=== PATIENT | female | born 1940 | race Caucasian/White ===

== ENCOUNTER 2016-05-12 08:00 | Outpatient (CLI) | payer MEDICARE, OTHER | END 2016-05-12 08:01 | disposition home or self-care (01) | DX: R94.7 Abnormal results of other endocrine function studies (principal) ==

== ENCOUNTER 2016-10-29 15:32 | Outpatient (CLI) | payer MEDICARE, OTHER ==
[2016-10-30 11:27] LABS: THYROID STIMULATING HORMONE 3.18 uIU/mL (0.34-5.60)
== END 2016-10-29 15:33 | disposition home or self-care (01) ==
LOC: LAB.F 15:32
PROVIDERS: ATTEND Internal Medicine Endocrinology, Diabetes & Metabolism
DX: R94.7 Abnormal results of other endocrine function studies (principal)
CPT/HCPCS: 36415; 84439; 84443; 86316

== ENCOUNTER 2017-01-08 10:58 | Outpatient (CLI) | payer MEDICARE, OTHER ==
[2017-01-08 18:48] LABS: THYROID STIMULATING HORMONE 3.09 uIU/mL (0.34-5.60)
== END 2017-01-08 10:59 | disposition home or self-care (01) ==
LOC: LAB.F 10:58
PROVIDERS: ATTEND Internal Medicine Endocrinology, Diabetes & Metabolism
DX: E05.90 Thyrotoxicosis, unspecified without thyrotoxic crisis or storm (principal)
CPT/HCPCS: 36415; 84439; 84443

== ENCOUNTER 2017-01-31 10:35 | Emergency (ER) | payer MEDICARE, OTHER ==
[2017-01-31 10:41] VITALS: BP 125/78
--- NOTE | 2017-01-31 11:11 | ED Physician Documentation ---
History of Present Illness - Stated complaint Stated Complaint: FEMALE - Chief complaint Chief Complaint: General - Additonal information Additional information: hx from pt 77 female dysuira X 9 days despite cramberry juice and fishy vag odor s discharge no fever but + sweats no NV no abd pain no flank pain Review of Systems Constitutional: reports: Sweats. denies: Fever Cardiac: denies: Chest pain / pressure GI: denies: Abdominal Pain, Nausea, Vomiting : reports: Dysuria. denies: Discharge Musculoskeletal: denies: Back pain PD PAST MEDICAL HISTORY - Past Medical History Respiratory: Shortness of breath Neuro: None HEENT: Chronic hearing loss Psych: Bipolar disorder Musculoskeletal: Osteoarthritis, Chronic back pain - Past Surgical History Past Surgical History: Yes - Present Medications Home Medications: Ambulatory Orders Medication Instructions Recorded Confirmed ALPRAZolam [Alprazolam] 0.5 mg PO BID 01/11/15 01/31/17 Albuterol [Ventolin Hfa] 2 puffs INH Q4H PRN #1 inhaler 01/11/15 01/31/17 Gabapentin 300 mg PO BID 01/11/15 01/31/17 Quetiapine Fumarate 150 mg PO DAILY 01/11/15 01/31/17 Cephalexin [Keflex] 500 mg PO Q6H #28 capsule 01/31/17 Cyanocobalamin (Vitamin B-12) 100 mcg PO DAILY 01/31/17 01/31/17 [Vitamin B-12 (100mcg tab)] Folic Acid 1 mg PO DAILY 01/31/17 01/31/17 Omeprazole 20 mg PO DAILY 01/31/17 01/31/17 - Allergies Allergies/Adverse Reactions: Allergies Allergy/AdvReac Type Severity Reaction Status Date / Time No Known Drug Allergies Allergy Verified 01/31/17 10:54 - Social History Does the pt smoke?: Yes Smoking Status: Current every day smoker Does the pt drink ETOH?: No Does the pt have substance abuse?: No - Immunizations Immunizations are current?: Yes PD ED PE NORMAL - Vitals Vital signs reviewed: Yes - Cardiac Cardiac: RRR - Respiratory Respiratory: No respiratory distress, Clear bilaterally - Abdomen Abdomen: Soft, Non tender - Female Female : 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[place], 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, wet prep and cultures sent) - Back Back: No CVA TTP - Neuro Neuro: Alert and oriented X 3 Results - Vitals Vitals: Vital Signs - 24 hr 01/31/17 10:38 Temperature 35.7 C L Heart Rate 81 Respiratory 16 Rate Blood Pressure 125/78 O2 Saturation 100 Oxygen O2 Source Room air - Labs Labs: Microbiology 01/31/17 11:30 Wet Prep - Final Genital - Cervix Laboratory Tests 01/31/17 11:45 Urine Color YELLOW Urine Clarity HAZY Urine pH 6.0 Ur Specific [place] 1.010 Urine Protein NEGATIVE Urine Glucose (UA) NEGATIVE Urine Ketones NEGATIVE Urine Occult Blood NEGATIVE Urine Nitrite POSITIVE H Urine Bilirubin NEGATIVE Urine Urobilinogen 0.2 (NORMAL) Ur Leukocyte Esterase MODERATE H Urine RBC 0-5 Urine WBC >25 H Urine WBC Clumps PRESENT Ur Squamous Epith Cells MANY Squamous H Urine Bacteria Moderate H Ur Microscopic Review INDICATED Urine Culture Comments NOT INDICATED Departure - Departure Disposition: 01 Home, Self Care Clinical Impression: UTI (urinary tract infection) Qualifiers: Urinary tract infection type: acute cystitis Hematuria presence: without hematuria Qualified Code(s): N30.00 - Acute cystitis without hematuria Condition: Good Instructions: ED UTI Cystitis Female Follow-Up: Malou Lopez ARNP [Primary Care Provider] - Prescriptions: Cephalexin [Keflex] 500 mg PO Q6H #28 capsule Comments: You do have a bladder infection. The initial vaginal cultures are negative. Some other vaginal cultures are still running and will be resulted in three days - we will call you if they are positive.
[2017-01-31 11:58] LABS: BILIRUBIN,URINE NEGATIVE (NEGATIVE)
[2017-01-31 12:00] LABS: UA w/ MICROSCOPIC CHARGE YES
[2017-01-31 12:05] LABS: UR CULTURE IF IND NOT INDICATED; WBC,URINE >25 /HPF (0-5)
== END 2017-01-31 12:28 | disposition home or self-care (01) ==
LOC: ED 10:35
DX: N30.00 Acute cystitis without hematuria (principal); M19.90 Unspecified osteoarthritis, unspecified site; F17.200 Nicotine dependence, unspecified, uncomplicated
CPT/HCPCS: 81001; 81003; 87086; 87210; 87491; 87591; 99283

== ENCOUNTER 2017-02-15 08:00 | Outpatient (CLI) | payer MEDICARE, OTHER ==
[2017-02-15 18:37] LABS: BILIRUBIN,URINE NEGATIVE (NEGATIVE); PH,URINE 6.5 PH (5.0-7.5)
[2017-02-15 19:24] LABS: UR CULTURE IF IND NOT INDICATED; WBC,URINE 0-3 /HPF (0-5)
== END 2017-02-15 08:01 | disposition home or self-care (01) ==
LOC: LAB.R 08:00
PROVIDERS: ATTEND Nurse Practitioner Family
DX: N76.0 Acute vaginitis (principal)
CPT/HCPCS: 81001; 87086

== ENCOUNTER 2017-04-20 15:49 | Outpatient (CLI) | payer MEDICARE, OTHER | END 2017-04-20 15:50 | disposition home or self-care (01) | LOC: LAB.F 15:49 | PROVIDERS: ATTEND Internal Medicine Endocrinology, Diabetes & Metabolism | DX: E05.90 Thyrotoxicosis, unspecified without thyrotoxic crisis or storm (principal); R94.7 Abnormal results of other endocrine function studies | CPT/HCPCS: 36415; 84443 ==

== ENCOUNTER 2017-04-21 08:00 | Outpatient (CLI) | payer MEDICARE, OTHER ==
[2017-04-21 18:35] LABS: BILIRUBIN,URINE NEGATIVE (NEGATIVE); GLUCOSE, URINE (UA) NEGATIVE (NEGATIVE); KETONES,URINE (UA) NEGATIVE (NEGATIVE); LEUKOCYTE ESTERASE, URINE SMALL (NEGATIVE); NITRITE,URINE NEGATIVE (NEGATIVE); OCCULT BLOOD,URINE NEGATIVE (NEGATIVE); PROTEIN,URINE NEGATIVE (NEGATIVE); UROBILINOGEN,URINE 0.2 (NORMAL) E.U./dL (NORMAL)
[2017-04-21 19:38] LABS: CLARITY,URINE CLEAR (CLEAR)
[2017-04-21 19:39] LABS: BACTERIA,URINE Moderate /HPF (None Seen); RBC,URINE 0-5 /HPF (0-5); SQUAMOUS EPITHELIAL CELL,UR MOD Squamous (<= Few)
== END 2017-04-21 08:01 ==
LOC: LAB.R 08:00
PROVIDERS: ATTEND Nurse Practitioner Family
DX: R30.0 Dysuria (principal)
CPT/HCPCS: 81001; 87086

== ENCOUNTER 2017-06-16 14:24 | Emergency (ER) | payer MEDICARE, OTHER ==
--- NOTE | 2017-06-16 15:30 | XRAY Preliminary Report ---
Exam: XR CHEST 2 VIEW X-RAY IMPRESSION: No acute cardiopulmonary disease seen. [facility] SITE ID: [id number]
--- NOTE | 2017-06-16 15:30 | XRAY Report ---
EXAM: CHEST RADIOGRAPHY EXAM DATE: 06/16/2017 03:10 PM. CLINICAL HISTORY: Cough/congestion. COMPARISON: Chest 01/11/15. TECHNIQUE: 2 views. FINDINGS: Lungs/Pleura: No focal opacities evident. No pleural effusion. No pneumothorax. Normal volumes. Mediastinum: Heart and mediastinal contours are unremarkable. IMPRESSION: No acute cardiopulmonary disease seen. [facility] Referring Provider Line: [phone] SITE ID: [id number]
[2017-06-16 15:43] VITALS: BP 145/80
[2017-06-16] MEDS ORDERED: DEXAMETHASONE 10 MG/ML VIAL PO STA (15:54)
--- NOTE | 2017-06-16 15:58 | ED Physician Documentation ---
PD HPI URI - Stated complaint Stated Complaint: FATIGUE/COUGH/RASH - Chief complaint Chief Complaint: General - History obtained from History obtained from: Patient, Family - History of Present Illness Timing - onset: How many weeks ago (3) Timing duration: Weeks (3) Timing details: Gradual onset, Still present Associated symptoms: Fever, Chills, Nasal congestion, Rhinorrhea, Sinus pain, Dry cough, Other (fatigue) Contributing factors: Sick contact Improves by: Rest, Medication Similar symptoms before: Diagnosis (wheezy bronchitis) Recently seen: Not recently seen - Additional information Additional information: 77 y/o female with a 3 week history of cough and congestion that seemed to get worse last week with fever and aches like the flu and this started to get better and then the past 3 days it is worse again with nasal congestion sinus pressure and fatigue. She is worried about pneumonia. She did get a rash on her chest that is better today. Review of Systems Constitutional: reports: Fever, Chills, Myalgias, Fatigue, Sweats Eyes: denies: Decreased vision Ears: denies: Ear pain Nose: reports: Rhinorrhea / runny nose, Congestion, Sinus pressure / pain Throat: denies: Sore throat Cardiac: denies: Chest pain / pressure, Palpitations Respiratory: reports: Cough. denies: Dyspnea GI: denies: Nausea, Vomiting : denies: Dysuria, Frequency Skin: reports: Rash Musculoskeletal: denies: Neck pain, Back pain, Extremity pain Neurologic: reports: Generalized weakness, Headache. denies: Focal weakness, Numbness, Head injury, LOC PD PAST MEDICAL HISTORY - Past Medical History Past Medical History: Yes Respiratory: Shortness of breath Neuro: None HEENT: Chronic hearing loss Psych: Bipolar disorder Musculoskeletal: Osteoarthritis, Chronic back pain - Past Surgical History Past Surgical History: Yes - Present Medications Home Medications: Ambulatory Orders Medication Instructions Recorded Confirmed ALPRAZolam [Alprazolam] 0.5 mg PO BID 01/11/15 06/16/17 Gabapentin 300 mg PO BID 01/11/15 06/16/17 Quetiapine Fumarate 150 mg PO DAILY 01/11/15 06/16/17 Cyanocobalamin (Vitamin B-12) 100 mcg PO DAILY 01/31/17 06/16/17 [Vitamin B-12 (100mcg tab)] Folic Acid 1 mg PO DAILY 01/31/17 06/16/17 Omeprazole 20 mg PO DAILY 01/31/17 06/16/17 Azithromycin [Zithromax] 250 mg PO DAILY #6 tablet 06/16/17 Fluconazole [Diflucan] 150 mg PO ONCE #1 tablet 06/16/17 - Allergies Allergies/Adverse Reactions: Allergies Allergy/AdvReac Type Severity Reaction Status Date / Time narcotics Allergy Unknown Uncoded 06/16/17 14:48 - Social History Does the pt smoke?: Yes Smoking Status: Current every day smoker Does the pt drink ETOH?: No Does the pt have substance abuse?: No - Immunizations Immunizations are current?: Yes PD ED PE NORMAL - Vitals Vital signs reviewed: Yes (hypertensive ) - General General: Alert and oriented X 3, No acute distress, Well developed/nourished, Other (pleasant female that does not appear ill. ) - HEENT HEENT: Atraumatic, PERRL, EOMI, Other (The left TM is discretely inflamed and the right is clear. There is sinus point tenderness to the left maxillary sinus. ) - Neck Neck: Supple, no meningeal sign, No bony TTP - Cardiac Cardiac: RRR, No murmur - Respiratory Respiratory: No respiratory distress, Other (diminished breath sounds without rhonchi ) - Abdomen Abdomen: Soft, Non tender - Back Back: No CVA TTP, No spinal TTP - Derm Derm: Normal color, Warm and dry, No rash - Extremities Extremities: No deformity, No edema - Neuro Neuro: No motor deficit, No sensory deficit Eye Opening: Spontaneous Motor: Obeys Commands Verbal: Oriented GCS Score: 15 - Psych Psych: Normal mood, Normal affect Results - Vitals Vitals: Vital Signs - 24 hr 06/16/17 06/16/17 14:46 15:42 Temperature 36.3 C L Heart Rate 77 68 Respiratory 14 18 Rate Blood Pressure 153/93 H 145/80 H O2 Saturation 98 98 Oxygen O2 Source Room air - Rads (name of study) 2 veiw chest Radiology: Prelim report reviewed (Impression: No acute cardiopulmonary disease seen.), EMP read indepedently, See rad report PD MEDICAL DECISION MAKING - ED course Complexity details: reviewed results, re-evaluated patient, considered differential, d/w patient, d/w family ED course: 77-year-old female with cough congestion for 3 weeks has a bimodal illness with improvement in what sounds like a viral illness and now worsening again. Findings today on examination include maxillary sinus tenderness on the left side and inflammation to the left TM. Chest x-ray is without evidence of acute infiltrate. She is administered dexamethasone orally and we will start her on some azithromycin. Departure - Departure Disposition: 01 Home, Self Care Clinical Impression: Otitis media Qualifiers: Otitis media type: suppurative Chronicity: acute Laterality: left Recurrence: not specified as recurrent Spontaneous tympanic membrane rupture: without spontaneous rupture Qualified Code(s): H66.002 - Acute suppurative otitis media without spontaneous rupture of ear drum, left ear Maxillary sinusitis, acute Qualifiers: Recurrence: not specified as recurrent Qualified Code(s): J01.00 - Acute maxillary sinusitis, unspecified Condition: Stable Instructions: ED Otitis Media Acute Adult, ED Sinusitis Abx Tx Follow-Up: Malou Lopez ARNP [Primary Care Provider] - Prescriptions: Azithromycin [Zithromax] 250 mg PO DAILY #6 tablet Fluconazole [Diflucan] 150 mg PO ONCE #1 tablet
[2017-06-16] MEDS ORDERED: CHERRY SYRUP 10 ML UDC PO ONE (16:11)
== END 2017-06-16 16:11 | disposition home or self-care (01) ==
LOC: ED 14:24
DX: H66.002 Acute suppurative otitis media without spontaneous rupture of ear drum, left ear (principal); J01.00 Acute maxillary sinusitis, unspecified; F17.200 Nicotine dependence, unspecified, uncomplicated
CPT/HCPCS: 71046; 99283; A9270

== ENCOUNTER 2017-07-20 14:12 | Outpatient (CLI) | payer MEDICARE, OTHER | END 2017-07-20 14:13 | disposition home or self-care (01) | LOC: LAB.F 14:12 | PROVIDERS: ATTEND Internal Medicine Endocrinology, Diabetes & Metabolism | DX: E05.90 Thyrotoxicosis, unspecified without thyrotoxic crisis or storm (principal) | CPT/HCPCS: 36415; 84443 ==

== ENCOUNTER 2017-09-19 15:33 | Emergency (ER) | payer MEDICARE, OTHER ==
--- NOTE | 2017-09-19 16:15 | ED Physician Documentation ---
History of Present Illness - Stated complaint Stated Complaint: PX RADIATING FROM BACK TO FRONT - Chief complaint Chief Complaint: General - History obtained from History obtained from: Patient, Family - History of Present Illness Timing: How many days ago (4) Pain level max: 6 Pain level now: 4 Quality: aching, pain - Additonal information Additional information: RUQ and R flank pain for 4 days. states worse with movement and better with rest. Also complains of cloudy and foul-smelling urine. Review of Systems Ten Systems: 10 systems reviewed and negative Constitutional: denies: Fever, Chills Eyes: denies: Decreased vision Ears: denies: Ear pain Nose: denies: Rhinorrhea / runny nose, Congestion Throat: denies: Sore throat Cardiac: denies: Chest pain / pressure Respiratory: denies: Dyspnea, Wheezing GI: denies: Nausea, Vomiting, Diarrhea, Hematemesis, Bloody / black stool : reports: Dysuria, Frequency. denies: Hesitancy Skin: denies: Rash Musculoskeletal: denies: Neck pain, Back pain Neurologic: denies: Focal weakness, Numbness, Confused, Headache PD PAST MEDICAL HISTORY - Past Medical History Past Medical History: Yes Respiratory: Shortness of breath Neuro: Other HEENT: Chronic hearing loss Psych: Bipolar disorder Musculoskeletal: Osteoarthritis, Chronic back pain Other Past Medical History: brain anurysm - Past Surgical History Past Surgical History: Yes - Present Medications Home Medications: Ambulatory Orders Medication Instructions Recorded Confirmed ALPRAZolam [Alprazolam] 0.5 mg PO BID 01/11/15 06/16/17 Gabapentin 300 mg PO BID 01/11/15 06/16/17 Quetiapine Fumarate 150 mg PO DAILY 01/11/15 06/16/17 Cyanocobalamin (Vitamin B-12) 100 mcg PO DAILY 01/31/17 06/16/17 [Vitamin B-12 (100mcg tab)] Folic Acid 1 mg PO DAILY 01/31/17 06/16/17 Omeprazole 20 mg PO DAILY 01/31/17 06/16/17 Azithromycin [Zithromax] 250 mg PO DAILY #6 tablet 06/16/17 Fluconazole [Diflucan] 150 mg PO ONCE #1 tablet 06/16/17 Sulfamethox/Trimeth 800/160 1 each PO BID #28 tablet 09/19/17 [Bactrim Ds 800/160] - Allergies Allergies/Adverse Reactions: Allergies Allergy/AdvReac Type Severity Reaction Status Date / Time narcotics Allergy Unknown Uncoded 06/16/17 14:48 - Social History Does the pt smoke?: Yes Smoking Status: Current every day smoker Does the pt drink ETOH?: No Does the pt have substance abuse?: No - Immunizations Immunizations are current?: Yes PD ED PE NORMAL - Vitals Vital signs reviewed: Yes - General General: Alert and oriented X 3, No acute distress - HEENT HEENT: Moist mucous membranes, Pharynx benign - Neck Neck: Supple, no meningeal sign - Cardiac Cardiac: RRR, Strong equal pulses - Respiratory Respiratory: No respiratory distress, Clear bilaterally - Abdomen Abdomen: Soft, Other (TTP RUQ, + moyer's sign) - Back Back: No spinal TTP, Other (Mild right CVA tenderness) - Derm Derm: Warm and dry, No rash - Extremities Extremities: No edema - Neuro Neuro: Alert and oriented X 3 - Psych Psych: Normal mood, Normal affect Results - Vitals Vitals: Vital Signs - 24 hr 09/19/17 09/19/17 09/19/17 15:40 16:03 17:42 Temperature 36.2 C L 35.9 C L Heart Rate 65 62 63 Respiratory 16 15 18 Rate Blood Pressure 136/83 H 155/85 H 156/88 H O2 Saturation 98 98 97 Oxygen O2 Source Room air - EKG (time done) 1552 Rate: Rate (enter#) (54) Rhythm: NSR [place]: Normal Intervals: Normal [place] QRS: Normal Ischemia: Normal ST segments - Labs Labs: Laboratory Tests 09/19/17 09/19/17 09/19/17 16:06 16:15 16:15 WBC 6.2 RBC 4.12 L Hgb 12.8 Hct 39.0 MCV 94.5 MCH 31.2 H MCHC 33.0 RDW 14.7 Plt Count 198 MPV 7.7 L Neut # (Auto) 3.8 Lymph # (Auto) 1.9 [place] # (Auto) 0.4 Eos # (Auto) 0.1 Baso # (Auto) 0.1 Absolute Nucleated RBC 0.00 Nucleated RBC % 0.0 Sodium 138 Potassium 3.8 Chloride 105 Carbon Dioxide 27 Anion Gap 6.0 BUN 19 Creatinine 1.0 Estimated GFR (MDRD) 54 L Glucose 89 Calcium 9.5 Total Bilirubin 0.7 AST 21 ALT 15 Alkaline Phosphatase 58 Troponin I Total Protein 6.6 L Albumin 3.6 Globulin 3.0 Albumin/Globulin Ratio 1.2 Lipase 44 Urine Color LT. YELLOW Urine Clarity CLEAR Urine pH 6.0 Ur Specific [place] <=1.005 Urine Protein NEGATIVE Urine Glucose (UA) NEGATIVE Urine Ketones NEGATIVE Urine Occult Blood NEGATIVE Urine Nitrite NEGATIVE Urine Bilirubin NEGATIVE Urine Urobilinogen 0.2 (NORMAL) Ur Leukocyte Esterase SMALL H Urine RBC None Seen Urine WBC 11-25 H Ur Squamous Epith Cells RARE Squamous Urine Bacteria None Seen Ur Microscopic Review INDICATED Urine Culture Comments INDICATED 09/19/17 16:15 WBC RBC Hgb Hct MCV MCH MCHC RDW Plt Count MPV Neut # (Auto) Lymph # (Auto) [place] # (Auto) Eos # (Auto) Baso # (Auto) Absolute Nucleated RBC Nucleated RBC % Sodium Potassium Chloride Carbon Dioxide Anion Gap BUN Creatinine Estimated GFR (MDRD) Glucose Calcium Total Bilirubin AST ALT Alkaline Phosphatase Troponin I < 0.04 Total Protein Albumin Globulin Albumin/Globulin Ratio Lipase Urine Color Urine Clarity Urine pH Ur Specific [place] Urine Protein Urine Glucose (UA) Urine Ketones Urine Occult Blood Urine Nitrite Urine Bilirubin Urine Urobilinogen Ur Leukocyte Esterase Urine RBC Urine WBC Ur Squamous Epith Cells Urine Bacteria Ur Microscopic Review Urine Culture Comments - Rads (name of study) Right upper quadrant ultrasound Radiology: Prelim report reviewed, EMP read contemporaneously, See rad report ( No acute abnormality) PD MEDICAL DECISION MAKING - ED course Complexity details: reviewed results, re-evaluated patient, considered differential, d/w patient, d/w family ED course: Patient is a 77-year-old female who presents to the emergency department with right flank pain and foul-smelling urine. Appears consistent with likely pyelonephritis. Given Rocephin here and will place on Bactrim for home. She is well-appearing, nontoxic. Afebrile. No vomiting. Patient and family counseled regarding signs and symptoms for which I believe and urgent re- evaluation would be necessary. Patient with good understanding of and agreement to plan and is comfortable going home at this time This document was made in part using voice recognition software. While efforts are made to proofread this document, sound alike and grammatical errors may occur. No evidence of urosepsis - Sepsis Event Vital Signs: Vital Signs - 24 hr 09/19/17 09/19/17 09/19/17 15:40 16:03 17:42 Temperature 36.2 C L 35.9 C L Heart Rate 65 62 63 Respiratory 16 15 18 Rate Blood Pressure 136/83 H 155/85 H 156/88 H O2 Saturation 98 98 97 Oxygen O2 Source Room air Departure - Departure Disposition: 01 Home, Self Care Clinical Impression: Pyelonephritis Condition: Good Instructions: ED Kidney Infec Female Follow-Up: Malou Lopez ARNP [Primary Care Provider] - Within 1 week Prescriptions: Sulfamethox/Trimeth 800/160 [Bactrim Ds 800/160] 1 each PO BID #28 tablet Comments: Take all antibiotics until gone. Return if you worsen. Discharge Date/Time: 09/19/17 18:45
[2017-09-19 16:27] LABS: BILIRUBIN,URINE NEGATIVE (NEGATIVE); GLUCOSE, URINE (UA) NEGATIVE (NEGATIVE); KETONES,URINE (UA) NEGATIVE (NEGATIVE); LEUKOCYTE ESTERASE, URINE SMALL (NEGATIVE); NITRITE,URINE NEGATIVE (NEGATIVE); OCCULT BLOOD,URINE NEGATIVE (NEGATIVE); PROTEIN,URINE NEGATIVE (NEGATIVE); UROBILINOGEN,URINE 0.2 (NORMAL) E.U./dL (NORMAL)
[2017-09-19 16:29] LABS: BASOPHILS # (AUTO) 0.1 10^3/uL (0.0-0.1); BASOPHILS % (AUTO) 1.1 %; EOSINOPHILS # (AUTO) 0.1 10^3/uL (0.0-0.7); EOSINOPHILS % (AUTO) 1.3 %; HGB - HEMOGLOBIN 12.8 g/dL (12.0-16.0); LYMPHOCYTES # (AUTO) 1.9 10^3/uL (1.5-3.5); LYMPHOCYTES % (AUTO) 29.8 %; MEAN CORPUSCULAR HEMOGLOBIN 31.2 pg (27.0-31.0); MEAN CORPUSCULAR VOLUME 94.5 fL (81.0-99.0); MEAN PLATELET VOLUME 7.7 fL (7.9-10.8); MONOCYTES # (AUTO) 0.4 10^3/uL (0.0-1.0); MONOCYTES % (AUTO) 7.2 %; NEUTROPHILS # (AUTO) 3.8 10^3/uL (1.5-6.6); NEUTROPHILS % (AUTO) 60.6 %; PLT - PLATELET COUNT 198 10^3/uL (130-450); RED BLOOD COUNT 4.12 10^6/uL (4.20-5.40); RED CELL DISTRIBUTION WIDTH 14.7 % (12.0-15.0); WHITE BLOOD COUNT 6.2 x10^3/uL (4.8-10.8)
[2017-09-19 16:36] LABS: BACTERIA,URINE None Seen /HPF (None Seen); CLARITY,URINE CLEAR (CLEAR); RBC,URINE None Seen /HPF (0-5); SQUAMOUS EPITHELIAL CELL,UR RARE Squamous (<= Few)
[2017-09-19 16:39] LABS: ALBUMIN 3.6 g/dL (3.2-5.5); ALBUMIN/GLOBULIN RATIO 1.2 (1.0-2.2); BILIRUBIN,TOTAL 0.7 mg/dL (0.2-1.0); CALCIUM 9.5 mg/dL (8.5-10.3); TOTAL PROTEIN 6.6 g/dL (6.7-8.2)
[2017-09-19] MEDS ORDERED: cefTRIAXone 1 GM VIAL IVP STA (17:17)
--- NOTE | 2017-09-19 17:34 | Ultrasound Report ---
Procedure Date: 09/19/2017 Accession Number: [id number] / [id number] Procedure: US - Abdomen Limited CPT Code: FULL RESULT: EXAM: ABDOMEN ULTRASOUND LIMITED, RUQ EXAM DATE: 09/19/2017 05:13 PM. CLINICAL HISTORY: RUQ abd pain, + moyer. COMPARISON: None. TECHNIQUE: Real-time scanning was performed with static images obtained. FINDINGS: Liver: Normal in size and echotexture. 13.1 cm. Main portal vein flow: Hepatopetal. Gallbladder: Partially contracted. No obvious gallstones, gallbladder wall thickening or pericholecystic fluid collections. Biliary System: CBD measures 3 mm. No intrahepatic or extrahepatic ductal dilatation. Other: No right hydronephrosis. The visualized pancreas is unremarkable. IMPRESSION: 1. No evidence of cholelithiasis or cholecystitis. 2. No bile duct obstruction. [facility]
[2017-09-19 17:42] VITALS: BP 156/88
== END 2017-09-19 18:45 | disposition home or self-care (01) ==
LOC: ED 15:33
DX: N12 Tubulo-interstitial nephritis, not specified as acute or chronic (principal); F17.200 Nicotine dependence, unspecified, uncomplicated
CPT/HCPCS: 36415; 76705; 80053; 81001; 81003; 81599; 83690; 84484; 85025; 87086; 87181; 93005; 96374; 99283; 99284

== ENCOUNTER 2017-09-21 13:36 | Outpatient (CLI) | payer MEDICARE, OTHER ==
--- NOTE | 2017-09-22 16:32 | XRAY Report ---
Procedure Date: 09/21/2017 Accession Number: [id number] / [id number] Procedure: XRS - Ribs w/PA Chest RT CPT Code: FULL RESULT: EXAM: RIGHT RIB RADIOGRAPHY EXAM DATE: 09/21/2017 01:47 PM. CLINICAL HISTORY: CHEST PAIN, RIGHT. COMPARISON: 06/16/2017. TECHNIQUE: 1 view of the chest and 2 views of the ribs. FINDINGS: Bones: Normal. No fracture or bone lesion. Lungs: Bilateral pleural-parenchymal scarring is again seen. No new focal airspace consolidation. No pleural effusion or pneumothorax. Mediastinum: Stable heart size and mediastinum. Other: None. IMPRESSION: 1. No right-sided rib fractures are seen. 2. No pneumothorax. 3. Pulmonary foci of scarring appear unchanged. No new airspace consolidation. [facility]
== END 2017-09-21 13:37 | disposition home or self-care (01) ==
LOC: DI.S 13:36
PROVIDERS: ATTEND Nurse Practitioner Family
DX: R07.89 Other chest pain (principal)

== ENCOUNTER 2017-11-12 13:07 | Outpatient (CLI) | payer MEDICARE, OTHER | END 2017-11-12 13:08 | disposition home or self-care (01) | LOC: LAB.F 13:07 | PROVIDERS: ATTEND Internal Medicine Endocrinology, Diabetes & Metabolism | DX: E05.90 Thyrotoxicosis, unspecified without thyrotoxic crisis or storm (principal) | CPT/HCPCS: 36415; 84443 ==

== ENCOUNTER 2018-01-18 13:38 | Outpatient (CLI) | payer MEDICARE, OTHER ==
[2018-01-18 17:48] LABS: THYROID STIMULATING HORMONE 0.65 uIU/mL (0.34-5.60)
[2018-01-18 17:51] LABS: FREE T4 (FREE THYROXINE) 0.87 ng/dL (0.58-1.64)
== END 2018-01-18 13:39 | disposition home or self-care (01) ==
LOC: LAB.F 13:38
PROVIDERS: ATTEND Internal Medicine Endocrinology, Diabetes & Metabolism
DX: E05.90 Thyrotoxicosis, unspecified without thyrotoxic crisis or storm (principal)
CPT/HCPCS: 36415; 84439; 84443

== ENCOUNTER 2018-09-14 08:00 | Outpatient (CLI) | payer MEDICARE, OTHER ==
[2018-09-14 18:15] LABS: THYROID STIMULATING HORMONE 0.91 uIU/mL (0.34-5.60)
[2018-09-14 18:17] LABS: FREE T4 (FREE THYROXINE) 0.82 ng/dL (0.58-1.64)
== END 2018-09-14 23:59 | disposition home or self-care (01) ==
LOC: LAB.F 08:00
PROVIDERS: ATTEND Internal Medicine Endocrinology, Diabetes & Metabolism
DX: E05.90 Thyrotoxicosis, unspecified without thyrotoxic crisis or storm (principal)
CPT/HCPCS: 36415; 84439; 84443

== ENCOUNTER 2018-09-20 12:07 | Emergency (ER) | payer MEDICARE, OTHER ==
--- NOTE | 2018-09-20 12:58 | ED Physician Documentation ---
History of Present Illness - Stated complaint Stated Complaint: CONGESTION/COUGH - Chief complaint Chief Complaint: Heent - History obtained from History obtained from: Patient - Additonal information Additional information: Patient is a 78-year-old female presenting with about 2 weeks of worsening cough. Patient reports initial dry cough with mild nasal congestion but no significant rhinorrhea or postnasal drip. However, patient reports that cough has become more productive of green and yellow sputum. Patient denies headache, fever, chills, or shortness of breath. However, patient does describe chest pressure that is constant and not necessarily associated with coughing. Patient denies any abdominal complaints. No other improving or worsening factors noted. Review of Systems Constitutional: denies: Fever, Chills Cardiac: reports: Chest pain / pressure Respiratory: reports: Dyspnea, Cough GI: denies: Abdominal Pain PD PAST MEDICAL HISTORY - Past Medical History Respiratory: Shortness of breath Neuro: Other HEENT: Chronic hearing loss Psych: Bipolar disorder Musculoskeletal: Osteoarthritis, Chronic back pain - Past Surgical History Past Surgical History: Yes - Present Medications Home Medications: Ambulatory Orders Medication Instructions Recorded Confirmed ALPRAZolam [Alprazolam] 0.5 mg PO BID 01/11/15 06/16/17 Gabapentin 300 mg PO BID 01/11/15 06/16/17 Quetiapine Fumarate 150 mg PO DAILY 01/11/15 06/16/17 Cyanocobalamin (Vitamin B-12) 100 mcg PO DAILY 01/31/17 06/16/17 [Vitamin B-12 (100mcg tab)] Folic Acid 1 mg PO DAILY 01/31/17 06/16/17 Omeprazole 20 mg PO DAILY 01/31/17 06/16/17 Azithromycin [Zithromax] 250 mg PO DAILY #6 tablet 06/16/17 Fluconazole [Diflucan] 150 mg PO ONCE #1 tablet 06/16/17 Sulfamethox/Trimeth 800/160 1 each PO BID #28 tablet 09/19/17 [Bactrim Ds 800/160] Benzonatate [Tessalon Perle] 100 - 200 mg PO TID PRN #30 capsule 09/20/18 - Allergies Allergies/Adverse Reactions: Allergies Allergy/AdvReac Type Severity Reaction Status Date / Time narcotics Allergy Hallucinati Uncoded 09/20/18 12:29 ons - Social History Does the pt smoke?: Yes Smoking Status: Current every day smoker Does the pt drink ETOH?: No Does the pt have substance abuse?: No - Immunizations Immunizations are current?: Yes PD ED PE NORMAL - Vitals Vital signs reviewed: Yes - General General: Alert and oriented X 3, No acute distress, Well developed/nourished - HEENT HEENT: Atraumatic, Moist mucous membranes, Pharynx benign - Cardiac Cardiac: RRR, No murmur - Respiratory Respiratory: No respiratory distress, Clear bilaterally - Abdomen Abdomen: Soft, Non tender, Non distended - Derm Derm: Normal color, Warm and dry, No rash - Extremities Extremities: No deformity, No tenderness to palpate - Neuro Neuro: Alert and oriented X 3, No motor deficit, No sensory deficit - Psych Psych: Normal mood, Normal affect Results - Vitals Vitals: Vital Signs - 24 hr 09/20/18 12:26 Temperature 36.0 C L Heart Rate 67 Respiratory 18 Rate Blood Pressure 138/72 H O2 Saturation 100 Oxygen O2 Source Room air PD MEDICAL DECISION MAKING - ED course Complexity details: reviewed results, re-evaluated patient, considered differential, d/w patient ED course: Most concerning for pneumonia, viral illness, bronchitis given patient's symptoms, but also have concern for possible ACS, myocardial infarction, unstable angina, dissection, aneurysm, PE. Patient only amenable to chest x-ray at this time. Patient declines EKG, labs, or other work-up despite discussing my concerns for possible issues including heart attack. Patient voices understanding that she may be experiencing a more severe disease process that could put her at risk for complications or even . She declines any further work-up as she feels this is only related to her cough, not her heart or other issues. Feel the patient is capable of making such decision. Chest x-ray does not show evidence of pneumonia at this time. Do not feel patient requires antibiotics, but will provide cough medication. Also discussed other supportive cares, strict return precautions, and need for immediate primary care follow-up. Patient voiced understanding and is comfortable with discharge plan. Departure - Departure Disposition: 01 Home, Self Care Clinical Impression: Bronchitis Chest pain Qualifiers: Chest pain type: unspecified Qualified Code(s): R07.9 - Chest pain, unspecified Condition: Good Instructions: ED Chest Pain Atypical Unkn Cause, ED URI Viral Follow-Up: DMITRI HERMAN MD [Primary Care Provider] - Tomorrow Prescriptions: Benzonatate [Tessalon Per[place]] 100 - 200 mg PO TID PRN #30 capsule PRN Reason: Cough Comments: Please continue all home medications as previously instructed. May use cough medication to help alleviate symptoms of cough. Recommend close follow-up within the next 1 day with your primary care physician to discuss chest discomfort. Please return immediately to the ED if experience continued chest pain/pressure/discomfort, shortness of breath, lightheadedness, dizziness, passing out, or other concerns.
--- NOTE | 2018-09-20 13:28 | XRAY Report ---
Reason: cough Procedure Date: 09/20/2018 Accession Number: [id number] / [id number] Procedure: XR - Chest 2 View X-Ray CPT Code: 09614 FULL RESULT: EXAM: CHEST RADIOGRAPHY EXAM DATE: 09/20/2018 01:15 PM. CLINICAL HISTORY: Cough. COMPARISON: CHEST 2 VIEW 06/16/2017 2:52 PM. TECHNIQUE: 2 views. FINDINGS: Lungs/Pleura: No consolidation. Lung volumes are normal. Negative for pleural effusion and pneumothorax. Mediastinum: Heart and mediastinal contours are unremarkable. Other: None. IMPRESSION: Negative for an acute cardiopulmonary abnormality. [facility]
[2018-09-20 13:47] VITALS: BP 129/67
== END 2018-09-20 13:47 | disposition home or self-care (01) ==
LOC: ED 12:07
DX: J40 Bronchitis, not specified as acute or chronic (principal); R07.89 Other chest pain; F17.200 Nicotine dependence, unspecified, uncomplicated
CPT/HCPCS: 71046; 99283

== ENCOUNTER 2019-04-17 11:27 | Emergency (ER) | payer MEDICARE, OTHER ==
[2019-04-17 11:56] VITALS: BP 144/78
[2019-04-17 12:57] LABS: BILIRUBIN,URINE NEGATIVE (NEGATIVE); GLUCOSE, URINE (UA) NEGATIVE (NEGATIVE); KETONES,URINE (UA) NEGATIVE (NEGATIVE); LEUKOCYTE ESTERASE, URINE LARGE (NEGATIVE); NITRITE,URINE NEGATIVE (NEGATIVE); OCCULT BLOOD,URINE MODERATE (NEGATIVE); PH,URINE 6.5 PH (5.0-7.5); PROTEIN,URINE NEGATIVE (NEGATIVE); UROBILINOGEN,URINE 0.2 (NORMAL) E.U./dL (NORMAL)
[2019-04-17 13:09] LABS: CLARITY,URINE HAZY (CLEAR)
[2019-04-17 13:13] LABS: BACTERIA,URINE Many /HPF (None Seen); SQUAMOUS EPITHELIAL CELL,UR MANY Squamous (<= Few)
--- NOTE | 2019-04-17 13:18 | ED Physician Documentation ---
History of Present Illness - Stated complaint Stated Complaint: FEMALE - Chief complaint Chief Complaint: UTI - History obtained from History obtained from: Patient - History of Present Illness Timing: How many days ago (3) Pain level max: 3 Pain level now: 2 - Additonal information Additional information: dysuria, frequency and foul smelling urine x 3 days. no fevers. no vomiting. no back or abd pain. Similar to prior UTI. Worse with urination. nothing makes it better Review of Systems Constitutional: denies: Fever, Chills Throat: denies: Sore throat GI: denies: Vomiting, Diarrhea : reports: Dysuria, Frequency, Hesitancy Skin: denies: Rash PD PAST MEDICAL HISTORY - Past Medical History Past Medical History: Yes Respiratory: Shortness of breath Neuro: Other HEENT: Chronic hearing loss Psych: Bipolar disorder Musculoskeletal: Osteoarthritis, Chronic back pain - Past Surgical History Past Surgical History: Yes - Present Medications Home Medications: Ambulatory Orders Medication Instructions Recorded Confirmed ALPRAZolam [Alprazolam] 0.5 mg PO BID 01/11/15 06/16/17 Gabapentin 300 mg PO BID 01/11/15 06/16/17 Quetiapine Fumarate 150 mg PO DAILY 01/11/15 06/16/17 Cyanocobalamin (Vitamin B-12) 100 mcg PO DAILY 01/31/17 06/16/17 [Vitamin B-12 (100mcg tab)] Folic Acid 1 mg PO DAILY 01/31/17 06/16/17 Omeprazole 20 mg PO DAILY 01/31/17 06/16/17 Azithromycin [Zithromax] 250 mg PO DAILY #6 tablet 06/16/17 Fluconazole [Diflucan] 150 mg PO ONCE #1 tablet 06/16/17 Sulfamethox/Trimeth 800/160 1 each PO BID #28 tablet 09/19/17 [Bactrim Ds 800/160] Benzonatate [Tessalon [place]] 100 - 200 mg PO TID PRN #30 capsule 09/20/18 Cephalexin [Keflex] 500 mg PO Q6H #20 capsule 04/17/19 - Allergies Allergies/Adverse Reactions: Allergies Allergy/AdvReac Type Severity Reaction Status Date / Time narcotics Allergy Hallucinati Uncoded 04/17/19 11:53 ons - Social History Does the pt smoke?: Yes Smoking Status: Current every day smoker Does the pt drink ETOH?: No Does the pt have substance abuse?: No - Immunizations Immunizations are current?: Yes PD ED PE NORMAL - Vitals Vital signs reviewed: Yes - General General: Alert and oriented X 3, No acute distress - HEENT HEENT: Moist mucous membranes - Neck Neck: Supple, no meningeal sign - Cardiac Cardiac: RRR, Strong equal pulses - Respiratory Respiratory: No respiratory distress, Clear bilaterally - Abdomen Abdomen: Soft, Non tender, Non distended - Back Back: No CVA TTP - Derm Derm: Warm and dry - Neuro Neuro: Alert and oriented X 3 - Psych Psych: Normal mood, Normal affect Results - Vitals Vitals: Vital Signs - 24 hr 04/17/19 04/17/19 11:53 12:54 Temperature 36.5 C Heart Rate 74 Respiratory 18 Rate Blood Pressure 144/78 H O2 Saturation 100 Oxygen O2 Source Room air - Labs Labs: Laboratory Tests 04/17/19 12:50 Urine Color YELLOW Urine Clarity HAZY Urine pH 6.5 Ur Specific [place] <=1.005 Urine Protein NEGATIVE Urine Glucose (UA) NEGATIVE Urine Ketones NEGATIVE Urine Occult Blood MODERATE H Urine Nitrite NEGATIVE Urine Bilirubin NEGATIVE Urine Urobilinogen 0.2 (NORMAL) Ur Leukocyte Esterase LARGE H Urine RBC 6-10 H Urine WBC >25 H Ur Squamous Epith Cells MANY Squamous H Urine Bacteria Many H Ur Microscopic Review INDICATED Urine Culture Comments NOT INDICATED PD MEDICAL DECISION MAKING - ED course Complexity details: reviewed results, re-evaluated patient, considered differential, d/w patient ED course: Patient with a UTI. Will place on antibiotics. No evidence of pyelonephritis. No evidence of sepsis. Patient counseled regarding signs and symptoms for which I believe and urgent re-evaluation would be necessary. Patient with good understanding of and agreement to plan and is comfortable going home at this time This document was made in part using voice recognition software. While efforts are made to proofread this document, sound alike and grammatical errors may occur. Departure - Departure Disposition: 01 Home, Self Care Clinical Impression: UTI (urinary tract infection) Qualifiers: Urinary tract infection type: acute cystitis Hematuria presence: without he maturia Qualified Code(s): N30.00 - Acute cystitis without hematuria Condition: Good Instructions: ED UTI Cystitis Female Follow-Up: PATY CASAREZ MD [Primary Care Provider] - Within 1 week (if not better) Prescriptions: Cephalexin [Keflex] 500 mg PO Q6H #20 capsule Comments: Take all antibiotics until gone. Return if you worsen. Follow-up with your doctor if not better in 1 week. Discharge Date/Time: 04/17/19 13:34
== END 2019-04-17 13:34 | disposition home or self-care (01) ==
LOC: ED 11:27
DX: N30.00 Acute cystitis without hematuria (principal); F17.200 Nicotine dependence, unspecified, uncomplicated
CPT/HCPCS: 81001; 81003; 87086; 99283; 99284

== ENCOUNTER 2023-10-22 19:47 | Outpatient (CLI) | payer MEDICARE, OTHER ==
--- NOTE | 2023-10-22 22:08 | XRAY Report ---
PROCEDURE: Cervical Spine 2-3V INDICATIONS: S/P CERVICAL SPINAL FUSION TECHNIQUE: 6 view(s) of the cervical spine were acquired. COMPARISON: Chest radiograph dated 09/20/2018. FINDINGS: Bones: No fractures or dislocations to the T1 level. There is prior ACDF at C3-4 level. No evidence of hardware loosening or failure. Straightening of normal cervical lordosis is seen. Loss of disc he ight, degenerative endplate changes and bilateral uncovertebral hypertrophic changes are noted throug hout cervical spine. 3 mm anterolisthesis of C6 on C7 is seen. 4 mm anterolisthesis of C3 on C4 is al so noted. The lateral masses of C1 appear intact on the odontoid view. No suspicious bony lesions. Soft tissues: No prevertebral soft tissue swelling. IMPRESSION: No displaced fracture or traumatic subluxation. Prior ACDF at C3-4 level. Grade 1 anterolisthesis at C3-4 and C6-7 levels. Moderate degenerative disc disease throughout cervical spine. Reviewed by: Deandre Freitas MD on 10/22/2023 10:06 PM PDT Approved by: Deandre Fretias MD on 10/22/2023 10:06 PM PDT Station ID: [id number]
== END 2023-10-22 19:48 | disposition home or self-care (01) ==
LOC: DI 19:47
PROVIDERS: ATTEND Physician Assistant
DX: M43.12 Spondylolisthesis, cervical region (principal); M50.30 Other cervical disc degeneration, unspecified cervical region; Z98.1 Arthrodesis status

== ENCOUNTER 2023-10-22 20:59 | Outpatient (CLI) | payer MEDICARE, OTHER | END 2023-10-22 21:00 | disposition home or self-care (01) | LOC: DI 20:59 | DX: Z53.9 Procedure and treatment not carried out, unspecified reason (principal) ==

== ENCOUNTER 2023-11-09 12:48 | Outpatient (CLI) | payer MEDICARE, OTHER ==
[2023-11-09 13:31] LABS: ALBUMIN 4.3 g/dL (3.2-5.5); ALBUMIN/GLOBULIN RATIO 1.7 (1.0-2.2); BILIRUBIN,TOTAL 0.5 mg/dL (0.2-1.0); CALCIUM 9.8 mg/dL (8.5-10.3); CREATININE 1.6 mg/dL (0.6-1.3); POTASSIUM 4.3 mmol/L (3.5-4.5); TOTAL PROTEIN 6.8 g/dL (6.4-8.9)
== END 2023-11-09 12:49 | disposition home or self-care (01) ==
LOC: LAB 12:48
PROVIDERS: ATTEND Psychiatry & Neurology Psychiatry
DX: G31.9 Degenerative disease of nervous system, unspecified (principal); Z79.899 Other long term (current) drug therapy
CPT/HCPCS: 36415; 80053; 81599